=== PATIENT | male | born 1985 | race Caucasian/White ===

== ENCOUNTER 2021-10-27 19:29 | Emergency (ER) | payer SELFPAY ==
[~2021-10-27] VITALS: Ht 162.6 cm; Wt 66.0 kg
[2021-10-27 22:17] VITALS: BP 130/82
[2021-10-27 22:34] LABS: BASOPHILS % 0.5 % (0.0-2.0); EOSINOPHILS % 4.8 % (0.0-5.0); HEMATOCRIT. 40.2 % (42.0-52.0); HEMOGLOBIN. 14.1 g/dL (14.0-18.0); LYMPHOCYTES % 29.5 % (20.0-50.0); MEAN CORPUSCULAR HEMOGLOBIN 27.4 pg (28.0-32.0); MEAN CORPUSCULAR VOLUME 77.8 fL (80.0-94.0); MEAN PLATELET VOLUME 7.5 fl (7.4-10.4); MONOCYTES % 9.6 % (2.0-8.0); NEUTROPHILS % 55.6 % (40.0-76.0); PLATELET 228 x1000/uL (130-400); RED BLOOD CELL COUNT 5.17 mill/uL (4.7-6.1); RED CELL DISTRIBUTION WIDTH 14.1 % (11.6-14.6)
[2021-10-27 22:39] LABS: CHLORIDE 108 mEq/L (98-107)
[2021-10-27 22:43] LABS: ETHANOL BLOOD < 10 mg/dL
[2021-10-28] MEDS ORDERED: IBUP-2029 MT (02:17)
== END 2021-10-28 02:41 | disposition home or self-care (01) ==
LOC: ER 19:29
DX: R07.89 Other chest pain (principal); J02.9 Acute pharyngitis, unspecified; R53.1 Weakness
CPT/HCPCS: 36415; 71045; 72128; 72131; 80053; 80320; 85025; 93005; 99285; G0480